=== PATIENT | male | born 1975 | race Caucasian/White ===

== ENCOUNTER 2017-04-02 17:55 | Emergency (ER) | payer BC, OTHER ==
[2017-04-02] MEDS ORDERED: Tetracaine 0.5% 2 ML Bottle EYELF ONE (18:10)
[2017-04-02] MEDS ORDERED: Distilled Water Ophth Irrig Soln 120 ML Bottle EYELF ONE (18:15)
[2017-04-02] MEDS ORDERED: Fluorescein 1 MG Ophth Strip EYELF ONE (18:15)
[2017-04-02] MEDS ORDERED: Gentamicin 0.3% Ophth Soln 5 ML Bottle EYELF ONE (18:34)
--- NOTE | 2017-04-02 18:44 | EDM.PDOC ---
ED HPI GENERAL MEDICAL PROBLEM - General Chief Complaint: Eye Problems Stated Complaint: foreign body to left eye Time Seen by Provider: 04/02/17 18:07 Source of Information: Reports: Patient, RN History Limitations: Reports: No Limitations - History of Present Illness INITIAL COMMENTS - FREE TEXT/NARRATIVE: Patient got a foreign body in his left eye while at wor today. 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 He tried to flush eye but is still having discomfort and wateriness of the eye. Onset: Today, Sudden Onset Date: 04/02/17 Onset Time: 14:00 Duration: Hour(s):, Getting Worse Location: Reports: Other (foreign body left eye) Quality: Reports: Other (irritated) Severity: Moderate Improves with: Reports: None Worsens with: Reports: None Associated Symptoms: Reports: No Other Symptoms - Related Data Allergies Allergy/AdvReac Type Severity Reaction Status Date / Time No Known Allergies Allergy Verified 04/02/17 17:59 Home Meds: Home Meds . [No Known Home Meds] 04/02/17 [History] Past Medical History - Past Surgical History Musculoskeletal Surgical History: Reports: Arthroscopic Knee Social & Family History - Tobacco Use Smoking Status *Q: Never Smoker - Recreational Drug Use Recreational Drug Use: No ED ROS GENERAL - Review of Systems Review Of Systems: ROS reveals no pertinent complaints other than HPI. ED EXAM GENERAL W FULL EYE - Physical Exam Exam: See Below Exam Limited By: No Limitations General Appearance: Alert, WD/WN, No Apparent Distress Eye Exam: Left Eye: Conjunctival Injection, Foreign Body (small foreign body left eye, unknown composition.), Bilateral Eye: EOMI, PERRL Eyelids: Left: Foreign Body, Bilateral: Normal Appearance Conjunctiva & Sclera: Left: Injected Cornea Exam: Left: Foreign Body (small foreign body lateral to pupil over iris on left eye), Examined with Flourescein (no abrasions or ulcerations on the rest of cornea, small divot around foreign body noted.) Extraocular Movements: Bilateral: Intact Pupils: Normal Accommodation Pupillary Size: Bilateral: 4 mm Pupillary Reaction: Bilateral: Brisk Anterior Chamber: Left: Normal Appearance Ears: Normal External Exam, Normal Canal, Hearing Grossly Normal, Normal TMs ED EYE w/ Add Procedure - Eye Procedure Alcaine Drops Administered: Yes (2 drops left eye) Eye FB Removal: Other (unable to remove with cotton swab or needle. ) Antibiotic Oinment/Drps Admin: Left Eye (gent opthalmic) Course - Vital Signs Last Recorded V/S: Last Vital Signs Temp 36.9 C 04/02/17 17:56 Pulse 79 04/02/17 17:56 Resp 20 04/02/17 17:56 BP 134/82 04/02/17 17:56 Pulse Ox 96 04/02/17 17:56 - Orders/Labs/Meds Meds: Medications Discontinued Medications Generic Name Dose Route Start Last Admin Trade Name Tien PRN Reason Stop Dose Admin Fluorescein Sodium 1 mg 04/02/17 18:15 04/02/17 18:17 Ful-Carina EYELF 04/02/17 18:16 1 mg ONETIME ONE Administration Gentamicin Sulfate 1 ml 04/02/17 18:34 04/02/17 18:34 Garamycin 0.3% Ophth Soln EYELF 04/02/17 18:35 1 ml ONETIME ONE Administration Tetracaine 1 ml 04/02/17 18:10 04/02/17 18:12 Pontocaine 0.5% Ophth Drops EYELF 04/02/17 18:11 1 ml ASDIRECTED ONE Administration Water 3 ml 04/02/17 18:15 04/02/17 18:17 Eye Wash Irrigation Soln EYELF 04/02/17 18:16 3 ml ONETIME ONE Administration - Re-Assessments/Exams Free Text/Narrative Re-Assessment/Exam: 04/02/17 18:51 Patient examined. Unable to remove foreign body with Q tip or sterile needle. Contacted Dr Cortez at [facility] who agreed to accept patient in transfer. There is an primary care provider Dr Hung who is available for consult in [place]. Risks and benefits of transfer discussed with patient. Benefit includes transfer to higher level of care with optometry availability. Risks include transfer problems or worsening condition. Patient voiced understanding and agreed with Plan. Departure - Departure Time of Disposition: 18:54 Disposition: DC/Tfer to Acute Hospital 02 Condition: Good Clinical Impression: Foreign body, eye Qualifiers: Encounter type: initial encounter Laterality: left Qualified Code(s): T15.92XA - Foreign body on external eye, part unspecified, left eye, initial encounter - Discharge Information Instructions: Eye Foreign Body, [id number] Referrals: Herbert Lloyd MD [Primary Care Provider] -
== END 2017-04-02 19:00 ==
LOC: CC.ED 17:55
DX: T15.92XA Foreign body on external eye, part unspecified, left eye, initial encounter (principal)
CPT/HCPCS: 99284; A9270-GY